=== PATIENT | female | born 1930 | race Caucasian/White ===

== ENCOUNTER 2017-03-13 10:14 | Inpatient (IN) | payer MEDICARE, BC ==
[~2017-03-13 10:14] MED LIST: CYMBALTA30 MG PO; FEOSOL-DPS325 MG PO; FLONASE 0.05% D16 GM NS; MIRALAX DPS17 GM PO; MOVANTIK25 MG PO; NORVASC DPS10 MG PO; PROAIR RESPICL90 MCG IH; PROTONIX40 MG PO; VIBRAMYCIN-DPS100 M1 PO; ZOFRAN4 MG PO
[2017-03-19] MEDS ORDERED: CYMBALTA60 MG PO (19:57)
[2017-03-19] MEDS ORDERED: LYRICA150 MG PO (19:57)
[2017-03-19] MEDS ORDERED: AMBIEN DPS10 MG PO (19:57)
[2017-03-19] MEDS ORDERED: FOSAMAX70 MG PO (19:58)
[2017-03-19] MEDS ORDERED: WELLBUTRIN XL150 MG PO (19:58)
[2017-03-19] MEDS ORDERED: MIRAPEX0.125 MG PO (19:58)
[2017-03-19] MEDS ORDERED: VITAMIN D50000 UNIT PO (19:58)
[2017-03-19] MEDS ORDERED: LASIX DPS40 MG PO (19:59)
[2017-03-19] MEDS ORDERED: HYDROCODON-ACE1 EAC4 PO (19:59)
[2017-03-19] MEDS ORDERED: MUCINEX600 MG PO (20:01)
[2017-03-19] MEDS ORDERED: ACETYLCYSTEINE 20% IH (20:03)
[2017-03-19] MEDS ORDERED: COLACE-DPS100 MG PO (20:04)
[2017-03-19] MEDS ORDERED: VOLTAREN 1% GE100 GM TP (20:04)
[2017-03-19] MEDS ORDERED: PROVENTIL2.5 MG/3 M IH (20:04)
[2017-03-19] MEDS ORDERED: LEVAQUIN DPS500 MG PO (20:04)
== END 2017-03-19 11:43 | disposition home or self-care (01) | DRG 193 ==
DX: J18.9 Pneumonia, unspecified organism (principal); J96.91 Respiratory failure, unspecified with hypoxia; N17.9 Acute kidney failure, unspecified; M62.82 Rhabdomyolysis; E83.39 Other disorders of phosphorus metabolism; N39.0 Urinary tract infection, site not specified; B96.1 Klebsiella pneumoniae [K. pneumoniae] as the cause of diseases classified elsewhere; I12.9 Hypertensive chronic kidney disease with stage 1 through stage 4 chronic kidney disease, or unspecified chronic kidney disease; N18.9 Chronic kidney disease, unspecified; E87.6 Hypokalemia; G47.00 Insomnia, unspecified; G89.29 Other chronic pain; M54.9 Dorsalgia, unspecified; M25.519 Pain in unspecified shoulder; M19.90 Unspecified osteoarthritis, unspecified site; M81.0 Age-related osteoporosis without current pathological fracture; G25.81 Restless legs syndrome; E55.9 Vitamin D deficiency, unspecified; F41.9 Anxiety disorder, unspecified; Z85.038 Personal history of other malignant neoplasm of large intestine